=== PATIENT | male | born 1935 | race Caucasian/White ===

== ENCOUNTER 2017-04-12 09:06 | Inpatient (IN) | payer MEDICARE, BC ==
[2017-04-04 16:00] LABS: PRE OP INR 1.1 INR; PRE OP PROTIME 11.3 SECONDS (9.0-12.0)
[2017-04-04 16:05] LABS: ALBUMIN 3.4 G/DL (3.4-5.0); ALBUMIN/GLOBULIN RATIO 0.9 (1.1-1.5); ALKALINE PHOSPHATASE 76 IU/L (46-116); BLOOD UREA NITROGEN 32 MG/DL (7-18); CALCIUM 8.6 MG/DL (8.5-10.1); CHLORIDE 106 MMOL/L (99-107); PRE OP ALT 18 U/L (30-65); PRE OP ANION GAP 8 (8-16); PRE OP AST 16 U/L (10-37); PRE OP BILIRUB, TOTAL 0.5 MG/DL (0.0-1.0); PRE OP GLUCOSE 86 MG/DL (70-104); PRE OP POTASSIUM 4.2 MMOL/L (3.4-5.1); PRE OP SODIUM 142 MMOL/L (135-145); TOTAL CARBON DIOXIDE 28.5 MMOL/L (24-32); eGFR 32 ML/MIN
[2017-04-04 16:06] LABS: BASOPHILS # (AUTO) 0.1 X10'3 (0-0.2); BASOPHILS % (AUTO) 1.4 % (0-1); EOSINOPHILS # (AUTO) 0.3 X10'3 (0-0.9); LYMPHOCYTES # (AUTO) 1.2 X10'3 (1.1-4.8); LYMPHOCYTES % (AUTO) 14.4 % (21-51); MEAN CORPUSCULAR HEMOGLOBIN 32.3 PG (27.0-31.0); MEAN CORPUSCULAR HGB CONC 35.2 % (33.0-36.5); MEAN CORPUSCULAR VOLUME 91.9 FL (78-98); MEAN PLATELET VOLUME 6.9 FL (7.4-10.4); MONOCYTES # (AUTO) 0.5 X10'3 (0-0.9); MONOCYTES % (AUTO) 5.6 % (2-12); NEUTROPHILS # (AUTO) 6.3 X10'3 (1.8-7.7); NEUTROPHILS % (AUTO) 74.6 % (42-75); PRE OP HEMATOCRIT 30.1 % (42.0-52.0); PRE OP PLATELET COUNT 254 X10'3 (140-440); RED BLOOD COUNT 3.28 X10'6 (4.70-6.10); RED CELL DISTRIBUTION WIDTH 13.7 % (11.5-14.5)
[2017-04-04 16:09] LABS: PRE OP HEMOGLOBIN 10.6 g/dL (14.0-17.9)
[2017-04-05 04:50] LABS: C-REACTIVE PROTEIN 0.24 MG/DL (0.0-0.5)
[~2017-04-12] VITALS: Ht 167.6 cm; Wt 64.1 kg
[2017-04-12] VITALS (21 sets, daily range): BP systolic 108–184; BP diastolic 58–85
[~2017-04-12 09:06] MED LIST: ASPI-611 PO; ATOR10TA87 PO; VANCOMYCIN INJ 1000 MG in NORMAL SALINE 250ml IV.SOLN IV ONE; cefazolin/dext.iso 2gm/50ml 50 ML IV ONE; famotidine 20mg tablet PO ONE; normal saline 1000ml 1,000 ML IV SCH
[2017-04-12] MEDS ORDERED: LIDOcaine 1% (10mg/ml) 2ml vial ONE (09:22)
[2017-04-12 10:01] LABS: ALANINE AMINOTRANSFERASE 10 U/L (12-78); ALBUMIN 3.4 G/DL (3.4-5.0); ALBUMIN/GLOBULIN RATIO 0.9 (1.1-1.5); ALKALINE PHOSPHATASE 74 IU/L (46-116); ANION GAP 8 (8-16); ASPARTATE AMINO TRANSFERASE 15 U/L (10-37); BILIRUBIN,TOTAL 0.4 MG/DL (0.1-1.0); BLOOD UREA NITROGEN 32 MG/DL (7-18); CALCIUM 8.8 MG/DL (8.5-10.1); CHLORIDE 107 MMOL/L (99-107); GLUCOSE 100 MG/DL (70-104); POTASSIUM 4.3 MMOL/L (3.5-5.1); SODIUM 141 MMOL/L (135-145); TOTAL CARBON DIOXIDE 25.8 MMOL/L (24-32); TOTAL PROTEIN 7.4 G/DL (6.4-8.2); eGFR 32 ML/MIN
[2017-04-12] MEDS: normal saline 500ml IV soln 500 ML IV SCH (10:13)
[2017-04-12] MEDS ORDERED: ceFAZolin 1000mg inj ONE (10:22)
[2017-04-12] MEDS ORDERED: BUPIVAcaine/dex-water/PF 7.5 mg/ml 2ml ampul ONE (10:45)
[2017-04-12] MEDS ORDERED: tetracaine 1% (10mg/ml) pres. free inj. ONE (10:47)
[2017-04-12] MEDS ORDERED: MIDAZolam 1mg/ml 10ml vial ONE (10:49)
[2017-04-12] MEDS ORDERED: MORPHINE SULFATE/PF 0.5 MG/ML 10ML AMPUL ONE (10:49)
[2017-04-12] MEDS ORDERED: fentaNYL/PF 50MCG/1 ML 2ML syringe ONE (10:49)
[2017-04-12] MEDS ORDERED: tranexamic acid inj. 1,000 MG in normal saline 100ml IV soln 90 ML IV ONE (11:05)
[2017-04-12] MEDS ORDERED: propofol inj 20 ML IV ONE ×2 (11:28)
[2017-04-12] MEDS ORDERED: ringers solution, lacted 1,000 ML IV SCH (12:12)
[2017-04-12] MEDS ORDERED: naloxone 2mg/2ml inj 2 MG in normal saline 500ml IV soln 500 ML IV PRN (12:12)
[2017-04-12] MEDS ORDERED: diphenhydrAMINE 50 mg/ml inj IV PRN (12:15)
[2017-04-12] MEDS ORDERED: proCHLORperazine 10 MG/2 ml inj IV PRN ×2 (12:15→19:20)
[2017-04-12] MEDS ORDERED: ondansetron/PF 4mg/2ml inj IV PRN ×3 (12:15→14:30)
[2017-04-12] MEDS ORDERED: morphine 2 MG/ML inj. syringe IV PRN ×2 (12:15)
[2017-04-12] MEDS ORDERED: meperidine/PF 25mg/ml syringe IV PRN ×3 (12:15)
[2017-04-12] MEDS ORDERED: magnesium hydroxide 30ml (MOM) UD suspension PO PRN (14:30)
[2017-04-12] MEDS ORDERED: diphenhydrAMINE 25mg capsule PO PRN ×2 (14:30)
[2017-04-12] MEDS ORDERED: HYDROmorphone 2mg/ml vial IV PRN (14:30)
[2017-04-12] MEDS ORDERED: acetaminophen 325mg tablet PO PRN (14:30)
[2017-04-12] MEDS ORDERED: bisacodyl 10mg suppository rectal RC PRN (14:30)
[2017-04-12 14:36] LABS: ISTAT CREATININE 1.8 mg/dL (0.8-1.3); ISTAT HGB 8.2 g/dl (14.0-18.0); ISTAT IONIZED CALCIUM 1.21 mmol/L (1.03-1.32); ISTAT K 4.5 mmol/L (3.5-5.1)
[2017-04-12] MEDS: potassium cl 20mEq in 1/2 NS 1,000 ML IV SCH ×2 (15:25→23:34)
[2017-04-12] MEDS: cefazolin 1gm/NS 100mL 100 ML IV SCH ×2 (16:00→23:33)
[2017-04-12] MEDS: HYDROcodone/acetaminophen 10/325mg tab PO PRN (17:23)
[2017-04-12] MEDS: aspirin 81mg tab.chew PO SCH (17:27)
[2017-04-12] MEDS ORDERED: aspirin 325mg tablet PO SCH (17:30)
[2017-04-12] MEDS ORDERED: NORMAL SALINE IV ONE (17:30)
[2017-04-12] MEDS ORDERED: TRANEXAMIC ACID IV ONE (17:30)
[2017-04-12] MEDS ORDERED: metoclopramide 5 mg/ml inj IV PRN (19:05)
[2017-04-12] MEDS: sennosides 8.6mg tablet PO SCH (21:00)
[2017-04-12] MEDS ORDERED: morphine 5 MG/ML injection IV PRN (21:40)
[2017-04-13 02:00] VITALS: BP 129/63
[2017-04-13] MEDS: HYDROcodone/acetaminophen 10/325mg tab PO PRN ×3 (05:58→17:12)
[2017-04-13 06:00] VITALS: BP 130/66
[2017-04-13 06:22] LABS: BASOPHILS % (AUTO) 0.2 % (0-1); EOSINOPHILS # (AUTO) 0.1 X10'3 (0-0.9); EOSINOPHILS % (AUTO) 1.1 % (0-6); HEMATOCRIT 27.3 % (42.0-52.0); HEMOGLOBIN 9.6 g/dl (14.0-17.9); LYMPHOCYTES # (AUTO) 0.6 X10'3 (1.1-4.8); MEAN CORPUSCULAR HEMOGLOBIN 31.9 PG (27.0-31.0); MEAN CORPUSCULAR HGB CONC 35.2 % (33.0-36.5); MEAN CORPUSCULAR VOLUME 90.7 FL (78-98); MEAN PLATELET VOLUME 6.8 FL (7.4-10.4); MONOCYTES # (AUTO) 0.8 X10'3 (0-0.9); MONOCYTES % (AUTO) 6.7 % (2-12); NEUTROPHILS # (AUTO) 9.9 X10'3 (1.8-7.7); PLATELET COUNT 188 X10'3 (140-440); RED BLOOD COUNT 3.01 X10'6 (4.70-6.10); WHITE BLOOD COUNT 11.4 X10'3 (4.5-11.0)
[2017-04-13] MEDS: normal saline 500ml IV soln 500 ML IV SCH (06:30)
[2017-04-13] MEDS: aspirin 81mg tab.chew PO SCH ×2 (07:38→17:12)
[2017-04-13 07:50] LABS: ALANINE AMINOTRANSFERASE 9 U/L (12-78); ALBUMIN 2.5 G/DL (3.4-5.0); ALBUMIN/GLOBULIN RATIO 0.8 (1.1-1.5); ALKALINE PHOSPHATASE 55 IU/L (46-116); ANION GAP 10 (8-16); ASPARTATE AMINO TRANSFERASE 20 U/L (10-37); BILIRUBIN,TOTAL 0.5 MG/DL (0.1-1.0); BLOOD UREA NITROGEN 28 MG/DL (7-18); BUN/CREATININE RATIO 13.3 (5.4-32.0); CALCIUM 8.1 MG/DL (8.5-10.1); CHLORIDE 109 MMOL/L (99-107); GLUCOSE 120 MG/DL (70-104); POTASSIUM 4.9 MMOL/L (3.5-5.1); SODIUM 143 MMOL/L (135-145); TOTAL CARBON DIOXIDE 23.9 MMOL/L (24-32); TOTAL PROTEIN 5.8 G/DL (6.4-8.2); eGFR 30 ML/MIN
[2017-04-13 10:00] VITALS: BP 114/47
[2017-04-13 14:00] VITALS: BP 124/62
[2017-04-13] MEDS: potassium cl 20mEq in 1/2 NS 1,000 ML IV SCH (17:13)
[2017-04-13 18:00] VITALS: BP 145/69
[2017-04-13] MEDS: sennosides 8.6mg tablet PO SCH (20:18)
[2017-04-13 22:00] VITALS: BP 148/61
[2017-04-14] MEDS: HYDROcodone/acetaminophen 10/325mg tab PO PRN ×2 (05:28→19:21)
[2017-04-14 06:00] VITALS: BP 155/76
[2017-04-14] MEDS: potassium cl 20mEq in 1/2 NS 1,000 ML IV SCH (07:02)
[2017-04-14] MEDS: normal saline 500ml IV soln 500 ML IV SCH (07:30)
[2017-04-14 07:33] LABS: BASOPHILS # (AUTO) 0.1 X10'3 (0-0.2); BASOPHILS % (AUTO) 0.5 % (0-1); EOSINOPHILS # (AUTO) 0.2 X10'3 (0-0.9); EOSINOPHILS % (AUTO) 1.8 % (0-6); HEMATOCRIT 27.5 % (42.0-52.0); HEMOGLOBIN 9.4 g/dl (14.0-17.9); LYMPHOCYTES # (AUTO) 0.6 X10'3 (1.1-4.8); LYMPHOCYTES % (AUTO) 4.5 % (21-51); MEAN CORPUSCULAR HEMOGLOBIN 31.5 PG (27.0-31.0); MEAN CORPUSCULAR HGB CONC 34.2 % (33.0-36.5); MEAN PLATELET VOLUME 7.4 FL (7.4-10.4); MONOCYTES # (AUTO) 0.9 X10'3 (0-0.9); MONOCYTES % (AUTO) 6.7 % (2-12); NEUTROPHILS # (AUTO) 11.1 X10'3 (1.8-7.7); NEUTROPHILS % (AUTO) 86.5 % (42-75); PLATELET COUNT 183 X10'3 (140-440); RED BLOOD COUNT 2.99 X10'6 (4.70-6.10); RED CELL DISTRIBUTION WIDTH 13.7 % (11.5-14.5); WHITE BLOOD COUNT 12.8 X10'3 (4.5-11.0)
[2017-04-14 07:53] LABS: ALANINE AMINOTRANSFERASE 13 U/L (12-78); ALBUMIN 2.4 G/DL (3.4-5.0); ALBUMIN/GLOBULIN RATIO 0.7 (1.1-1.5); ALKALINE PHOSPHATASE 56 IU/L (46-116); ANION GAP 8 (8-16); ASPARTATE AMINO TRANSFERASE 21 U/L (10-37); BILIRUBIN,TOTAL 0.4 MG/DL (0.1-1.0); BLOOD UREA NITROGEN 29 MG/DL (7-18); BUN/CREATININE RATIO 14.5 (5.4-32.0); CALCIUM 8.2 MG/DL (8.5-10.1); CHLORIDE 105 MMOL/L (99-107); GLUCOSE 94 MG/DL (70-104); POTASSIUM 4.8 MMOL/L (3.5-5.1); SODIUM 138 MMOL/L (135-145); TOTAL CARBON DIOXIDE 24.7 MMOL/L (24-32); TOTAL PROTEIN 5.9 G/DL (6.4-8.2); eGFR 32 ML/MIN
[2017-04-14] MEDS: aspirin 81mg tab.chew PO SCH ×2 (08:24→17:32)
[2017-04-14 10:00] VITALS: BP 134/65
[2017-04-14] MEDS: sennosides 8.6mg tablet PO SCH (19:20)
[2017-04-14 19:42] VITALS: BP 163/73
[2017-04-14 22:00] VITALS: BP 144/69
[2017-04-15 05:00] VITALS: BP 150/72
[2017-04-15 06:00] VITALS: BP 144/69
[2017-04-15 07:12] LABS: BASOPHILS # (AUTO) 0.1 X10'3 (0-0.2); BASOPHILS % (AUTO) 0.9 % (0-1); EOSINOPHILS # (AUTO) 0.7 X10'3 (0-0.9); HEMATOCRIT 26.9 % (42.0-52.0); HEMOGLOBIN 9.3 g/dl (14.0-17.9); LYMPHOCYTES # (AUTO) 0.8 X10'3 (1.1-4.8); LYMPHOCYTES % (AUTO) 7.1 % (21-51); MEAN CORPUSCULAR HEMOGLOBIN 31.5 PG (27.0-31.0); MEAN CORPUSCULAR HGB CONC 34.6 % (33.0-36.5); MEAN CORPUSCULAR VOLUME 91.2 FL (78-98); MEAN PLATELET VOLUME 7.4 FL (7.4-10.4); MONOCYTES # (AUTO) 0.9 X10'3 (0-0.9); MONOCYTES % (AUTO) 8.1 % (2-12); NEUTROPHILS # (AUTO) 8.7 X10'3 (1.8-7.7); NEUTROPHILS % (AUTO) 77.9 % (42-75); PLATELET COUNT 194 X10'3 (140-440); RED BLOOD COUNT 2.95 X10'6 (4.70-6.10); RED CELL DISTRIBUTION WIDTH 13.6 % (11.5-14.5); WHITE BLOOD COUNT 11.1 X10'3 (4.5-11.0)
[2017-04-15 07:49] LABS: ALANINE AMINOTRANSFERASE 14 U/L (12-78); ALBUMIN 2.2 G/DL (3.4-5.0); ALBUMIN/GLOBULIN RATIO 0.6 (1.1-1.5); ALKALINE PHOSPHATASE 53 IU/L (46-116); ANION GAP 8 (8-16); ASPARTATE AMINO TRANSFERASE 21 U/L (10-37); BILIRUBIN,TOTAL 0.4 MG/DL (0.1-1.0); BLOOD UREA NITROGEN 32 MG/DL (7-18); BUN/CREATININE RATIO 16.8 (5.4-32.0); CALCIUM 8.3 MG/DL (8.5-10.1); CHLORIDE 105 MMOL/L (99-107); GLUCOSE 116 MG/DL (70-104); POTASSIUM 4.1 MMOL/L (3.5-5.1); SODIUM 137 MMOL/L (135-145); TOTAL CARBON DIOXIDE 24.5 MMOL/L (24-32); TOTAL PROTEIN 5.8 G/DL (6.4-8.2); eGFR 34 ML/MIN
[2017-04-15] MEDS: aspirin 81mg tab.chew PO SCH ×2 (07:57→16:41)
[2017-04-15] MEDS: normal saline 500ml IV soln 500 ML IV SCH (08:30)
[2017-04-15 10:00] VITALS: BP 154/77
[2017-04-15 17:00] VITALS: BP 142/73
[2017-04-15] MEDS: Protein Shake (high protein) 240ml (8oz) cup PO SCH (18:00)
[2017-04-15] MEDS: sennosides 8.6mg tablet PO SCH (21:00)
[2017-04-15 22:00] VITALS: BP 161/78
[2017-04-16] MEDS ORDERED: mag hydrox/Alum hydrox/simeth 30ml oral suspension PO PRN (05:15)
[2017-04-16] MEDS ORDERED: acetaminophen 325mg tablet PO PRN (05:15)
[2017-04-16 06:00] VITALS: BP 154/77
[2017-04-16] MEDS: aspirin 81mg tab.chew PO SCH (07:45)
[2017-04-16] MEDS: Protein Shake (high protein) 240ml (8oz) cup PO SCH ×2 (08:00→13:31)
[2017-04-16 10:00] VITALS: BP 155/71
== END 2017-04-16 14:45 | DRG 466 ==
LOC: PAS IN 09:06 → EDSTATUS 11:00 → ORTHO 4S 15:47
PROVIDERS: ADMIT Orthopaedic Surgery; ATTEND Orthopaedic Surgery
PROC: 0SPS0JZ Removal of Synthetic Substitute from Left Hip Joint, Femoral Surface, Open Approach (ICD-10-PCS; 2017-04-12)
PROC: 30233N1 Transfusion of Nonautologous Red Blood Cells into Peripheral Vein, Percutaneous Approach (ICD-10-PCS; 2017-04-12)
PROC: 0SRS0J9 Replacement of Left Hip Joint, Femoral Surface with Synthetic Substitute, Cemented, Open Approach (ICD-10-PCS; principal; 2017-04-12 10:49)
DX: T84.021A Dislocation of internal left hip prosthesis, initial encounter (principal); E43 Unspecified severe protein-calorie malnutrition; D62 Acute posthemorrhagic anemia; I25.10 Atherosclerotic heart disease of native coronary artery without angina pectoris; R11.2 Nausea with vomiting, unspecified; Z96.641 Presence of right artificial hip joint; E78.5 Hyperlipidemia, unspecified; Y83.1 Surgical operation with implant of artificial internal device as the cause of abnormal reaction of the patient, or of later complication, without mention of misadventure at the time of the procedure; Y79.2 Prosthetic and other implants, materials and accessory orthopedic devices associated with adverse incidents; Z91.013 Allergy to seafood; Z85.72 Personal history of non-Hodgkin lymphomas; Z85.828 Personal history of other malignant neoplasm of skin; Z95.5 Presence of coronary angioplasty implant and graft; Z86.14 Personal history of Methicillin resistant Staphylococcus aureus infection; Z68.22 Body mass index [BMI] 22.0-22.9, adult; Y92.89 Other specified places as the place of occurrence of the external cause
CPT/HCPCS: 36415; 71046; 80047; 80053; 82948; 85025; 85610; 85651; 85730; 86140; 86885; 86900; 86901; 86920; 87070; 92616; 93005; 97110; 97116; 97161; 97530; A4315; A4620; A6223; A6253; A6449; A6455; A7000; C1713; C1758; C1776; J0690; J0780; J1170; J1644; J2250; J2274; J2405; J2704; J3010; J3370; J3490; J7030; J7120; P9016; Q0163

== ENCOUNTER 2018-03-26 12:08 | Day surgery (SDC) | payer MEDICARE, BC ==
[2018-03-25 12:57] LABS: ALBUMIN 3.2 G/DL (3.4-5.0); ANION GAP 10 (8-16); BLOOD UREA NITROGEN 42 MG/DL (7-18); BUN/CREATININE RATIO 17.4 (5.4-32.0); CALCIUM 8.4 MG/DL (8.5-10.1); CHLORIDE 104 MMOL/L (99-107); CREATININE 2.42 MG/DL (0.60-1.10); GLUCOSE 149 MG/DL (70-104); POTASSIUM 4.2 MMOL/L (3.5-5.1); SODIUM 142 MMOL/L (135-145); TOTAL CARBON DIOXIDE 27.7 MMOL/L (24-32); eGFR 26 ML/MIN
[2018-03-25 13:23] LABS: BASOPHILS # (AUTO) 0.1 X10'3 (0-0.2); BASOPHILS % (AUTO) 1.2 % (0-1); EOSINOPHILS # (AUTO) 0.2 X10'3 (0-0.9); EOSINOPHILS % (AUTO) 3.3 % (0-6); HEMATOCRIT 31.3 % (42.0-52.0); HEMOGLOBIN 10.7 g/dl (14.0-17.9); LYMPHOCYTES # (AUTO) 0.9 X10'3 (1.1-4.8); LYMPHOCYTES % (AUTO) 11.9 % (21-51); MEAN CORPUSCULAR HEMOGLOBIN 31.9 PG (27.0-31.0); MEAN CORPUSCULAR HGB CONC 34.1 % (33.0-36.5); MEAN CORPUSCULAR VOLUME 93.4 FL (78-98); MEAN PLATELET VOLUME 7.4 FL (7.4-10.4); MONOCYTES # (AUTO) 0.4 X10'3 (0-0.9); MONOCYTES % (AUTO) 5.5 % (2-12); NEUTROPHILS # (AUTO) 5.9 X10'3 (1.8-7.7); NEUTROPHILS % (AUTO) 78.1 % (42-75); PLATELET COUNT 329 X10'3 (140-440); RED BLOOD COUNT 3.35 X10'6 (4.70-6.10); RED CELL DISTRIBUTION WIDTH 12.3 % (11.5-14.5); WHITE BLOOD COUNT 7.5 X10'3 (4.5-11.0)
[2018-03-25 13:25] LABS: INR 1.1 INR; PARTIAL THROMBOPLASTIN TIME 38 SECONDS (22-32); PROTHROMBIN TIME 11.4 SECONDS (9.0-12.0)
[~2018-03-26] VITALS: Ht 167.6 cm; Wt 64.0 kg
[2018-03-26] MEDS ORDERED: normal saline 1000ml 1,000 ML IV SCH (12:35)
[2018-03-26] MEDS ORDERED: diphenhydrAMINE 25mg capsule PO PRN (12:35)
[2018-03-26] MEDS ORDERED: LORazepam 0.5 MG tablet PO PRN (12:35)
[2018-03-26 12:45] VITALS: BP 158/84
--- NOTE | 2018-03-26 13:00 | NUR ---
IV STARTED AND NS INFUSING ORDERED.
[2018-03-26] MEDS ORDERED: LIDOcaine 1% (10mg/ml)w/preservative injection 20ml MDV ONE (14:37)
[2018-03-26] MEDS ORDERED: iohexol 350MG/ML 100ml bottle IV ONE (14:37)
[2018-03-26] MEDS ORDERED: RIVA15TA PO (17:18)
[2018-03-26] MEDS ORDERED: ENOX40SY7 SUBCUT (17:18)
[2018-03-26] MEDS ORDERED: ATOR40TA PO (17:18)
[2018-03-26] MEDS ORDERED: ASPI-1265 PO (17:18)
[2018-03-26] MEDS ORDERED: fentaNYL/PF 50MCG/1 ML 2ML syringe ONE (17:31)
[2018-03-26] MEDS ORDERED: midazolam 2 mg/2 ml injection ONE (17:31)
--- NOTE | 2018-03-26 17:59 | NUR ---
PT PROCEDURE CANCELLED.
[2018-03-26 18:00] VITALS: BP 158/84
--- NOTE | 2018-03-26 19:25 | NUR ---
PT FINISHED EATING, DRESSED, W/C TO FRONT OF HOSPITAL WITH ALL PERSONAL BELONGINGS Addendum: 03/26/18 at 2144 by Leann Peterson RN Amended: Links added.
== END 2018-03-26 19:25 | disposition home or self-care (01) ==
LOC: SSTAY O 12:08
PROVIDERS: ATTEND Internal Medicine Interventional Cardiology
DX: I25.118 Atherosclerotic heart disease of native coronary artery with other forms of angina pectoris (principal); Z53.8 Procedure and treatment not carried out for other reasons; I12.9 Hypertensive chronic kidney disease with stage 1 through stage 4 chronic kidney disease, or unspecified chronic kidney disease; N18.9 Chronic kidney disease, unspecified; I71.4 Abdominal aortic aneurysm, without rupture; E78.5 Hyperlipidemia, unspecified; G47.33 Obstructive sleep apnea (adult) (pediatric); I65.23 Occlusion and stenosis of bilateral carotid arteries; I48.0 Paroxysmal atrial fibrillation; M19.90 Unspecified osteoarthritis, unspecified site; Z96.643 Presence of artificial hip joint, bilateral; Z72.89 Other problems related to lifestyle; Z86.14 Personal history of Methicillin resistant Staphylococcus aureus infection; Z85.828 Personal history of other malignant neoplasm of skin; Z86.73 Personal history of transient ischemic attack (TIA), and cerebral infarction without residual deficits; Z95.5 Presence of coronary angioplasty implant and graft; Z95.0 Presence of cardiac pacemaker; Z91.013 Allergy to seafood; Z79.82 Long term (current) use of aspirin; Z98.890 Other specified postprocedural states; Z79.899 Other long term (current) drug therapy
CPT/HCPCS: 36415; 80048; 85025; 85610; 85730; 93005; A6257; J1644; J2001; J2250; J3010; J7030; Q0163; Q9967; C1769

== ENCOUNTER 2018-04-21 11:26 | Inpatient (IN) | payer MEDICARE, BC | END 2018-04-26 15:35 | disposition home or self-care (01) | LOC: ER 11:26 → PCU 3S 04-22 08:00 → ED HOLD 14:26 | PROC: 027034Z Dilation of Coronary Artery, One Artery with Drug-eluting Intraluminal Device, Percutaneous Approach (ICD-10-PCS; principal; ~2018-04-21) | PROC: 4A023N7 Measurement of Cardiac Sampling and Pressure, Left Heart, Percutaneous Approach (ICD-10-PCS; ~2018-04-21) | PROC: B215YZZ Fluoroscopy of Left Heart using Other Contrast (ICD-10-PCS; ~2018-04-21) | PROC: B211YZZ Fluoroscopy of Multiple Coronary Arteries using Other Contrast (ICD-10-PCS; ~2018-04-21) | PROC: B211YZZ Fluoroscopy of Multiple Coronary Arteries using Other Contrast (ICD-10-PCS; ~2018-04-21) | DX: I12.9 Hypertensive chronic kidney disease with stage 1 through stage 4 chronic kidney disease, or unspecified chronic kidney disease (principal); N17.9 Acute kidney failure, unspecified; E44.0 Moderate protein-calorie malnutrition; N18.3 Chronic kidney disease, stage 3 (moderate) ==

== ENCOUNTER 2022-01-20 06:53 | Day surgery (SDC) | payer MEDICARE, BC ==
[~2022-01-20] VITALS: Ht 165.1 cm; Wt 49.5 kg
[2022-01-20] VITALS (8 sets, daily range): BP systolic 117–140; BP diastolic 57–68
[~2022-01-20 06:53] MED LIST changes: -ASPI-611 PO; -ATOR10TA87 PO; +ATOR40TA PO; +DEXA0.5T PO; +FEXO-310 PO; -VANCOMYCIN INJ 1000 MG in NORMAL SALINE 250ml IV.SOLN IV ONE; -cefazolin/dext.iso 2gm/50ml 50 ML IV ONE; -famotidine 20mg tablet PO ONE; -normal saline 1000ml 1,000 ML IV SCH
[2022-01-20] MEDS ORDERED: normal saline 1000ml 1,000 ML IV PRN (07:10)
[2022-01-20] MEDS ORDERED: HYDR-3717 PO (08:01)
[2022-01-20] MEDS ORDERED: TRAM50TA2 PO (08:01)
[2022-01-20] MEDS ORDERED: ASPI-1265 PO (08:02)
[2022-01-20] MEDS ORDERED: heparin 1,000unit/ml 10ml vial 10 ML ONE (08:20)
[2022-01-20] MEDS ORDERED: LIDOcaine 1% 30ml preserv. free vial ONE (08:21)
[2022-01-20] MEDS ORDERED: midazolam 1 mg/ML 2ml injection ONE (08:21)
[2022-01-20] MEDS ORDERED: FENTANYL CITRATE/PF 50 MCG/1 ML VIAL ONE (08:21)
== END 2022-01-20 11:45 | disposition home or self-care (01) ==
LOC: SSTAY O 06:53
PROVIDERS: ATTEND Radiology Diagnostic Radiology
DX: I13.0 Hypertensive heart and chronic kidney disease with heart failure and stage 1 through stage 4 chronic kidney disease, or unspecified chronic kidney disease (principal); N18.4 Chronic kidney disease, stage 4 (severe); I25.10 Atherosclerotic heart disease of native coronary artery without angina pectoris; Z95.5 Presence of coronary angioplasty implant and graft; Z91.013 Allergy to seafood; Z79.899 Other long term (current) drug therapy; Z79.82 Long term (current) use of aspirin; Z98.890 Other specified postprocedural states
CPT/HCPCS: 36415; 36558; 76937; 77001; 85610; 99152; 99153; C1750; C1769; C1894; J1644; J2250; J3010; J3490; J7030; A4620; A9270